=== PATIENT | female | born 1935 | race African-American/Black ===

== ENCOUNTER 2016-07-07 16:45 | Emergency (ER) | payer OTHER ==
--- NOTE | 2016-07-07 17:54 | PDOC ---
Rapid Medical Evaluation Time Seen by Provider: 07/07/16 17:45 Medical Evaluation: Allergies Allergy/AdvReac Type Severity Reaction Status Date / Time No Known Allergies Allergy Verified 06/23/13 15:01
== END 2016-07-07 17:55 | disposition left against medical advice (07) ==
LOC: JER 16:45
DX: Z53.21 Procedure and treatment not carried out due to patient leaving prior to being seen by health care provider (principal)
CPT/HCPCS: 99281-25

== ENCOUNTER 2016-07-07 17:48 | Emergency (ER) | payer OTHER ==
--- NOTE | 2016-07-07 18:06 | PDOC ---
History of Present Illness - General History Source: Patient, Old Records Exam Limitations: No Limitations <Amara Haider - Last Filed: 07/07/16 18:07> - General History Source: Patient, Old Records Exam Limitations: No Limitations - History of Present Illness Initial Comments: 07/07/16 18:28 The patient is a 80 year old female, with a significant past medical history of hypertension, hyperlipidemia, diabetes and thrombocytopenia, who presents to the emergency department with right wrist pain s/p a mechanical trip and fall on the sidewalk earlier this evening. The patient states that she was walking outside when she missed her step and fell. She states that she felt herself falling, tried to reach for the fence next to her but could not grasp it in time. She states that she landed on her outstretched right arm. She states that she did hit her head when she fell but reports that she remembers all events before, during and after her fall, she denies any LOC. The patient states the she is not on any anticoagulants or any antiplatelet medications. The patient denies any blurry vision, double vision, vision changes, headache, neck pain or back pain. The patient denies any other injury or trauma. Allergies: None reported. Past Surgical History: None reported. Social History: Non smoker. Denies alcohol or drug use. <Prerna Mora - Last Filed: 07/07/16 19:03> - General Chief Complaint: Injury Stated Complaint: RT WRIST PAIN Time Seen by Provider: 07/07/16 17:57 Past History - Past Medical History HTN: Yes Hypercholesterolemia: Yes - Psycho/Social/Smoking Cessation Hx Anxiety: No Suicidal Ideation: No Smoking History: Never smoked Have you smoked in the past 12 months: No Hx Alcohol Use: No Substance Use Type: None <Amara Haider - Last Filed: 07/07/16 18:07> <Prerna Mora - Last Filed: 07/07/16 19:03> - Past Medical History Allergies/Adverse Reactions: Allergies Allergy/AdvReac Type Severity Reaction Status Date / Time No Known Allergies Allergy Verified 07/07/16 17:49 Home Medications: Ambulatory Orders Atorvastatin Ca [Lipitor] 10 mg PO DAILY 06/23/13 Cholecalciferol (Vitamin D3) [Vitamin D3 -] 400 unit PO DAILY 07/07/16 Review of Systems - Review of Systems Able to Perform ROS?: Yes Comments:: 07/07/16 18:30 GENERAL/CONSTITUTIONAL: No fever or chills. No weakness. HEAD, EYES, EARS, NOSE AND THROAT: No change in vision. No ear pain or discharge. No sore throat. CARDIOVASCULAR: No chest pain or shortness of breath. RESPIRATORY: No cough, wheezing, or hemoptysis. GASTROINTESTINAL: No nausea, vomiting, diarrhea or constipation. GENITOURINARY: No dysuria, frequency, or change in urination. MUSCULOSKELETAL: +Right wrist pain. No joint or muscle swelling. No neck or back pain. SKIN: No rash. NEUROLOGIC: No headache, vertigo, loss of consciousness, or change in strength/ sensation. ENDOCRINE: No increased thirst. No abnormal weight change. HEMATOLOGIC/LYMPHATIC: No anemia, easy bleeding, or history of blood clots. ALLERGIC/IMMUNOLOGIC: No hives or skin allergy. <Prerna Mora - Last Filed: 07/07/16 19:03> *Physical Exam - Physical Exam Comments: 07/07/16 18:54 GENERAL: Awake, alert, and fully oriented, in no acute distress. HEAD: Refer to Skin section. EYES: PERRLA, EOMI, sclera anicteric, conjunctiva clear. ENT: Auricles normal inspection, hearing grossly normal, nares patent, oropharynx clear without exudates. Moist mucosa. NECK: Normal ROM, supple, no lymphadenopathy, JVD, or masses. LUNGS: Breath sounds equal, clear to auscultation bilaterally. No wheezes, and no crackles. HEART: Regular rate and rhythm, normal S1 and S2, no murmurs, rubs or gallops. ABDOMEN: Soft, nontender, normoactive bowel sounds. No guarding, no rebound. No masses. MUSCULOSKELETAL: No cervical spine tenderness. EXTREMITIES: Right wrist, there is a gross bony deformity which is tender to palpation. Radial pulse is +2 and palpable. Sensations are intact. Motor exam is limited by pain and swelling. No clubbing or cyanosis. No cords or erythema. NEUROLOGICAL: Cranial nerves II through XII intact. Normal speech, normal gait. SKIN: Right frontal region, there is a 3 cm x 4 cm hematoma with an overlying abrasion. There is bruising underneath the right eye. Warm, dry, normal turgor, no rashes noted. <Prerna Mora - Last Filed: 07/07/16 19:03> ED Treatment Course - LABORATORY CBC & Chemistry Diagram: 07/07/16 18:45 07/07/16 18:45 <Prerna Mora - Last Filed: 07/07/16 19:03> Medical Decision Making - Medical Decision Making 07/07/16 18:07 80-year-old female with history of hypertension, diabetes, thrombocytopenia who presents to the emergency department with injury to her right wrist and head following a mechanical fall. The patient does not take anti-coagulants or anti- platelet medications. Differential diagnosis includes but is not limited to: Wrist fracture, hand fracture, traumatic brain injury, concussion, contusion to head. Plan: 1. Labs 2. CT head 3. Plain films of right wrist and hand 4. Pain management 5. Observe and reevaluate <Amara Haider - Last Filed: 07/07/16 18:07> *DC/Admit/Observation/Transfer - Attestations Physician Attestion: 07/07/16 18:09 I, Dr. Amara Haider, attest that the scribes documentation that appears above has been prepared under my direction and personally reviewed by me in its entirety. I confirmed that the note above accurately reflects all work, treatment, procedures, and medical decision-making performed by me. <Amara Haider - Last Filed: 07/07/16 18:07> - Attestations Scribe Attestion: 07/07/16 18:15 Documentation prepared by Prerna Mora, acting as medical director occupational health for Amara Haider MD. <Prerna Mora - Last Filed: 07/07/16 19:03> Diagnosis at time of Disposition: Contusion of head, Wrist fracture, right
[2016-07-07] MEDS ORDERED: OXYCODONE/APAP 5/325MG COMBO TABLET PO ONE (18:11)
[2016-07-07 18:45] VITALS: BP 177/90; PULSE 76; TEMP 97.7; BMI 22.7
[2016-07-07] MEDS ORDERED: OXYCODONE/APAP 5/325MG COMBO TABLET ONE (18:46)
[2016-07-07 19:01] LABS: BASOPHIL 1.7 % (0-2.0); EOSINOPHIL 0.2 % (0-4.5); MCH 25.5 pg (25.7-33.7); MCHC 31.9 g/dl (32.0-36.0); MEAN CELL VOLUME 79.9 fl (80-96); MEAN PLT VOLUME 12.1 fl (7.5-11.1); NEUTROPHILS 83.4 % (42.8-82.8); PLATELET COUNT 114 K/MM3 (134-434); RDW 13.2 % (11.6-15.6); WHITE BLOOD COUNT 9.7 K/mm3 (4.0-10.0)
[2016-07-07 19:21] LABS: ACTIVATED PTT 26.4 SECONDS (24.0-38.9)
[2016-07-07 19:24] LABS: CALCIUM 9.5 mg/dl (8.4-10.2); CREATININE 0.8 mg/dl (0.6-1.3); MAGNESIUM 1.9 mg/dL (1.8-2.4); PHOSPHOROUS 2.9 mg/dl (2.5-4.6)
[2016-07-07 19:25] LABS: INR 1.2 (0.82-1.09); PROTHROMBIN TIME (PATIENT) 13.4 SEC (10.2-13.0)
[2016-07-07] MEDS ORDERED: LIDOCAINE HCL 1%, 10 MG/ML (20ML VIAL) ONE (20:37)
--- NOTE | 2016-07-07 21:03 | PDOC ---
*Physical Exam - Vital Signs Last Vital Signs Temp Pulse Resp BP Pulse Ox 97.7 F 76 20 177/90 96 07/07/16 17:49 07/07/16 17:49 07/07/16 17:49 07/07/16 17:49 07/07/16 17:49 ED Treatment Course - LABORATORY CBC & Chemistry Diagram: 07/07/16 18:45 07/07/16 18:45 - ADDITIONAL ORDERS Additional order review: Laboratory Results 07/07/16 07/07/16 18:45 18:45 INR 1.20 PTT (Actin FS) 26.4 Sodium 136 Potassium 4.0 Chloride 102 Carbon Dioxide 26 Anion Gap 8 BUN 18 Creatinine 0.8 Random Glucose 144 H Calcium 9.5 Phosphorus 2.9 Magnesium 1.9 07/07/16 18:45 RBC 5.34 H MCV 79.9 L MCHC 31.9 L RDW 13.2 MPV 12.1 H Neutrophils % 83.4 H Lymphocytes % 13.0 Monocytes % 1.7 L Eosinophils % 0.2 Basophils % 1.7 - Medications Given in the ED: ED Medications Discontinued Medications Generic Name Dose Route Start Last Admin Trade Name Freq PRN Reason Stop Dose Admin Oxycodone/Acetaminophen 1 combo 07/07/16 18:11 07/07/16 18:49 Percocet 5/325 - PO 07/07/16 18:12 1 combo ONCE ONE Administration *DC/Admit/Observation/Transfer Diagnosis at time of Disposition: Contusion of head Qualifiers: Encounter type: initial encounter Contusion of head detail: scalp Qualified Code(s): S00.03XA - Contusion of scalp, initial encounter Wrist fracture, right Qualifiers: Encounter type: initial encounter Fracture type: closed Qualified Code(s): S62.101A - Fracture of unspecified carpal bone, right wrist, initial encounter for closed fracture - Discharge Dispostion Disposition: HOME Condition at time of disposition: Stable - Patient Instructions Printed Discharge Instructions: How to Use a Sling Additional Instructions: ELEVATION TYLENOL IF PAIN SEE DR. BURGER (CALL IN AM) Procedure Note Procedure: UNDER HEMATOMA BLOCK, TRACTION APPLIED FOR 20 MIN AND REDUCTION ATTEMPTED. SUGAR TONGUE IMMOBILIZATION WILL SEE ORTHO IN AM
== END 2016-07-07 21:28 | disposition home or self-care (01) ==
LOC: FER 17:48
PROC: 0PSMXZZ Reposition Right Carpal, External Approach (ICD-10-PCS; principal; 2016-07-07)
DX: S52.531A Colles' fracture of right radius, initial encounter for closed fracture (principal); S00.03XA Contusion of scalp, initial encounter; W18.39XA Other fall on same level, initial encounter; Y93.89 Activity, other specified; Y92.410 Unspecified street and highway as the place of occurrence of the external cause
CPT/HCPCS: 25635; 36415; 70450-TC; 73090-TC-RT; 73110-TC-RT; 73130-TC-RT; 80048; 83735; 84100; 85025; 85610; 85730; 99282-25

== ENCOUNTER 2016-07-14 14:43 | Day surgery (SDC) | payer OTHER ==
[2016-07-14 15:30] VITALS: BMI 20.8
[2016-07-14] MEDS ORDERED: MIDAZOLAM HCL 2 MG/2 ML SINGLE DOSE VIAL ONE (15:38)
[2016-07-14] MEDS ORDERED: DEXAMETHASONE SOD PHOSPHATE/PF 10 MG/ML SDV ONE (15:38)
[2016-07-14] MEDS ORDERED: ROPIVACAINE HCL 0.5% 30ML VIAL ONE (15:38)
[2016-07-14] MEDS ORDERED: ONDANSETRON 4 MG/2 ML VIAL IVPUSH PRN (16:52)
[2016-07-14] MEDS ORDERED: oxyCODONE HCL 5 MG TABLET PO PRN (16:52)
[2016-07-14] MEDS ORDERED: MEPIVACAINE HCL/PF 15 MG/ML ML ONE (16:55)
[2016-07-14] MEDS ORDERED: LACTATED RINGERS SOLUTION 1,000 ML IV SCH (17:00)
[2016-07-14] MEDS ORDERED: PROPOFOL 20 ML ONE ×3 (17:11→18:01)
[2016-07-14 20:36] VITALS: BP 144/85; PULSE 78; TEMP 98.5
--- NOTE | 2016-07-15 13:15 | OP ---
DATE OF OPERATION: 07/14/2016 PREOPERATIVE DIAGNOSIS: Right comminuted intraarticular displaced distal radius fracture. POSTOPERATIVE DIAGNOSIS: Right comminuted intraarticular displaced distal radius fracture. OPERATIVE PROCEDURE: 1. Open reduction, internal fixation of right comminuted intraarticular displaced distal radius fracture with internal fixation of 3 or more fragments. 2. Right brachioradial sternotomy. SURGEON: Julia Hamilton MD TELEVISION CABLE INSTALLER: LETICIA Durant ANESTHESIA: Regional. COMPLICATIONS: None. ESTIMATED BLOOD LOSS: Minimal. INDICATION FOR PROCEDURE: The patient is a 80-year-old female with the above finding indicated for operative treatment. Risks, benefits, and alternatives were discussed with the patient at length and proper informed consent was obtained. PROCEDURE: After proper identification of patient, correct operative site, patient was brought to the operating room and placed supine on the operating room table. Prominences well padded. Sedation was given by the anesthesiologist. Local regional anesthesia was given. Right upper extremity was prepped and draped in the usual sterile fashion. Well-padded tourniquet was placed as well as a sterile prep. Esmarch bandage to exsanguinate right upper extremity. The tourniquet was inflated to 250 mmHg. A longitudinal incision was made over the flexor carpi radialis tendon. Incision was taken sharply through the skin and with blunt and sharp dissection through the subcutaneous tissues. Flexor carpi radialis tendon along with the contents of the carpal canal was bluntly and gently retracted in an ulnarward direction for the remainder of the procedure. Pronator quadratus was divided longitudinally. This was elevated off the distal radius. Fracture fragments were attempted to be reduced. The pull of the brachioradialis tendon made this not possible. Therefore, a subperiosteal brachial radialis tenotomy was performed. This allowed the fragments to be released and the fracture was able to be reduced. This was then held with an Acumed Acu-Loc 2 distal radius plate with distal locking screws and proximal nonlocking screws. This provided a secure stable fixation and satisfactory position confirmed visually as well as radiographically in multiple planes. Distal radial and ulnar joints and scapholunate intervals were stressed and found to be stable. The wound was irrigated with saline and repaired with 4-0 Vicryl in layers and a 4-0 Monocryl subcuticularly. Steri-Strips, sterile dressings, and a volar wrist splint were placed. Patient was reversed from anesthesia and brought to the recovery room in stable condition. Yobani Galan, the surgical processor, was integral throughout this procedure. The procedure could not have been performed without a skilled operative patent legal assistant. JULIA HAMILTON M.D. JESSICA/[id number]
== END 2016-07-14 20:15 | disposition home or self-care (01) ==
LOC: FASU 14:43
PROVIDERS: ATTEND Orthopaedic Surgery Hand Surgery
PROC: 0LN50ZZ Release Right Lower Arm and Wrist Tendon, Open Approach (ICD-10-PCS; 2016-07-14)
PROC: 0PSH04Z Reposition Right Radius with Internal Fixation Device, Open Approach (ICD-10-PCS; principal; 2016-07-14 17:30)
DX: S52.531A Colles' fracture of right radius, initial encounter for closed fracture (principal); X58.XXXA Exposure to other specified factors, initial encounter; Y93.9 Activity, unspecified; Y92.9 Unspecified place or not applicable
CPT/HCPCS: 73110-TC-RT

== ENCOUNTER 2018-08-21 17:00 | Emergency (ER) | payer OTHER ==
--- NOTE | 2018-08-21 17:07 | PDOC ---
Rapid Medical Evaluation Time Seen by Provider: 08/21/18 17:03 Medical Evaluation: Allergies Allergy/AdvReac Type Severity Reaction Status Date / Time No Known Allergies Allergy Verified 07/13/16 16:00 08/21/18 17:03 I have performed a brief in-person evaluation of this patient. The patient presents with a chief complaint of s/p fall fall. Patient reports s/p trip and fall with pain in left 5th digit and right knee. Denies loc Pertinent physical exam findings: heent: +abrasion to left side of face even and unlabored breathing right knee with redness and abrasion left hand with flexed 5th digit and abrasions to fingers I have ordered the following xray of right knee and left hand The patient will proceed to the ED for further evaluation. 08/21/18 17:09 Discharge Disposition - Diagnosis Fall Qualifiers: Encounter type: initial encounter Qualified Code(s): W19.XXXA - Unspecified fall, initial encounter - Referrals Referrals: Martinez Cash MD [Primary Care Provider] - - Patient Instructions - Post Discharge Activity
[2018-08-21 17:12] VITALS: BP 132/72; PULSE 77; TEMP 97.7; BMI 20.9
--- NOTE | 2018-08-21 19:29 | PDOC ---
*Physical Exam - Vital Signs Last Vital Signs Temp Pulse Resp BP Pulse Ox 97.7 F 77 17 132/72 98 08/21/18 17:04 08/21/18 17:04 08/21/18 17:04 08/21/18 17:04 08/21/18 17:04 Medical Decision Making - Medical Decision Making 08/21/18 19:25 Patient seen by the advanced practice provider under my direct supervision. Ancillary testing reviewed as necessary. I agree with plan as outlined by the advanced practice provider. *DC/Admit/Observation/Transfer Diagnosis at time of Disposition: Finger fracture, left Qualifiers: Encounter type: initial encounter Finger: little finger Fracture type: closed Phalanx: proximal Fracture alignment: displaced Qualified Code(s): S62.617A - Displaced fracture of proximal phalanx of left little finger, initial encounter for closed fracture Metacarpal bone fracture Qualifiers: Encounter type: initial encounter Metacarpal bone: fifth Fracture type: closed Metacarpal location: neck Fracture alignment: nondisplaced Laterality: left Qualified Code(s): S62.367A - Nondisplaced fracture of neck of fifth metacarpal bone, left hand, initial encounter for closed fracture - Discharge Dispostion Disposition: HOME - Prescriptions Prescriptions: Cephalexin Monohydrate [Keflex -] 500 mg PO Q8H #21 capsule - Referrals Referrals: Martinez Cash MD [Primary Care Provider] - Cj Plaza MD [Staff Physician] - Call tomorrow (need to follow up within a week) - Patient Instructions Printed Discharge Instructions: Finger Fracture Additional Instructions: please call orthopedic office tomorrow elevate arm. keep in sling. apply ice to the area for atleast 24 hours . do not remove splint take cephalexin as prescribed. Additional Instructions: * Please call your personal physician to report your Emergency Department visit and to report your progress, if any. * If there is no improvement in symptoms in 2 days call your physician. * Return to the Emergency Department for any worsening symptoms. - Post Discharge Activity Forms/Work/School Notes: Back to Work
[2018-08-21] MEDS ORDERED: LIDOCAINE HCL 2% (20ML MULTI-DOSE VIAL) NR ONE (20:04)
--- NOTE | 2018-08-21 20:06 | PDOC ---
History of Present Illness - General Chief Complaint: Injury Stated Complaint: Injury Time Seen by Provider: 08/21/18 17:03 History Source: Patient - History of Present Illness Initial Comments: 08/21/18 19:51 82year female tripped and fell over to the left side on the street, c/o left hand pain,left knee pain, and left side of lip swelling. denies head injury/ loc. normocephalic. patient did not fell forward, reports that she fell to the left side bracing the fall with her hand. as per patient last tetanus recent in the last few years 08/21/18 21:12 Past History - Past Medical History Allergies/Adverse Reactions: Allergies Allergy/AdvReac Type Severity Reaction Status Date / Time No Known Allergies Allergy Verified 08/21/18 17:04 Home Medications: Ambulatory Orders Atorvastatin Ca [Lipitor] 10 mg PO HS 06/23/13 Cholecalciferol (Vitamin D3) [Vitamin D3] 5,000 unit PO WEEKLY 07/13/16 Cephalexin Monohydrate [Keflex -] 500 mg PO Q8H #21 capsule 08/21/18 Anemia: No Asthma: No Cancer: No Cardiac Disorders: No CVA: No COPD: No CHF: No Dementia: No Diabetes: No GI Disorders: No Disorders: No HTN: No Hypercholesterolemia: Yes Liver Disease: No Seizures: No Thyroid Disease: No - Surgical History Abdominal Surgery: Yes (LAUREEN) Appendectomy: No Cardiac Surgery: No Cholecystectomy: No Lung Surgery: No Neurologic Surgery: No Orthopedic Surgery: No - Suicide/Smoking/Psychosocial Hx Smoking History: Never smoked Have you smoked in the past 12 months: No Information on smoking cessation initiated: No Hx Alcohol Use: No Drug/Substance Use Hx: No Substance Use Type: None Review of Systems - Review of Systems Able to Perform ROS?: Yes Is the patient limited [place] proficient: No Musculoskeletal: Yes: Other (hand pain) *Physical Exam - Vital Signs Last Vital Signs Temp Pulse Resp BP Pulse Ox 97.7 F 77 17 132/72 98 08/21/18 17:04 08/21/18 17:04 08/21/18 17:04 08/21/18 17:04 08/21/18 17:04 - Physical Exam General Appearance: Yes: Appropriately Dressed HEENT: positive: Other (has left upper swelling no mandibular / facial bone tenderness) Respiratory/Chest: positive: Lungs Clear, Normal Breath Sounds Cardiovascular: positive: Regular Rhythm, Regular Rate Gastrointestinal/Abdominal: positive: Normal Bowel Sounds, Soft Musculoskeletal: positive: Normal Inspection. negative: Vertebral Tenderness ( she has no midline tenderness, full rom, no ) Extremity: positive: Other (+ deormity to left 5th digit, tenderness to left 5th metacarpal bone) Integumentary: positive: Normal Color, Dry, Warm Neurologic: positive: Fully Oriented, Alert Procedures - Consent Consent obtained: Verbal - Joint Reduction Left Joint Reduction Site: left: Finger (5th proximal phalynx ) Pre-Procedure NV Exam: normal Conscious Sedation: Yes Finger Block: 5th digit Reduction Attempts: 1 Anesthetic: 1% Lidocaine Amount (mL): 1 Post-Procedure NV Exam: normal Complications: No (finger reduced with gentle countertraction and traction. ) Post Joint Reduction Film: joint reduced Splint: Yes (ulnar volvar splint placed) Immobilized: Yes Progress Note - Progress Note Progress Note: A: finger fracture. has abrasion on finger open fracture? P: xray tylenol. ortho follow up CT head and C-spine due to mechanism of fall. *DC/Admit/Observation/Transfer Diagnosis at time of Disposition: Fall in elderly patient Finger fracture, left Qualifiers: Encounter type: initial encounter Finger: little finger Fracture type: closed Phalanx: proximal Fracture alignment: displaced Qualified Code(s): S62.617A - Displaced fracture of proximal phalanx of left little finger, initial encounter for closed fracture Metacarpal bone fracture Qualifiers: Encounter type: initial encounter Metacarpal bone: fifth Fracture type: closed Metacarpal location: neck Fracture alignment: nondisplaced Laterality: left Qualified Code(s): S62.367A - Nondisplaced fracture of neck of fifth metacarpal bone, left hand, initial encounter for closed fracture - Discharge Dispostion Disposition: HOME - Prescriptions Prescriptions: Cephalexin Monohydrate [Keflex -] 500 mg PO Q8H #21 capsule - Referrals Referrals: Martinez Cash MD [Primary Care Provider] - Cj Plaza MD [Staff Physician] - Call tomorrow (need to follow up within a week) - Patient Instructions Printed Discharge Instructions: Finger Fracture Additional Instructions: please call orthopedic office tomorrow elevate arm. keep in sling. apply ice to the area for atleast 24 hours . do not remove splint take cephalexin as prescribed. Additional Instructions: * Please call your personal physician to report your Emergency Department visit and to report your progress, if any. * If there is no improvement in symptoms in 2 days call your physician. * Return to the Emergency Department for any worsening symptoms. - Post Discharge Activity Forms/Work/School Notes: Back to Work
== END 2018-08-21 22:05 | disposition home or self-care (01) ==
LOC: JER 17:00
PROC: 0PSVXZZ Reposition Left Finger Phalanx, External Approach (ICD-10-PCS; principal; 2018-08-21)
PROC: 2W3DX1Z Immobilization of Left Lower Arm using Splint (ICD-10-PCS; 2018-08-21)
DX: S62.367A Nondisplaced fracture of neck of fifth metacarpal bone, left hand, initial encounter for closed fracture (principal); S62.617A Displaced fracture of proximal phalanx of left little finger, initial encounter for closed fracture; W18.39XA Other fall on same level, initial encounter; Y93.89 Activity, other specified; Y92.414 Local residential or business street as the place of occurrence of the external cause; Y99.8 Other external cause status
CPT/HCPCS: 26725; 29125; 70450-TC; 72125-TC; 73130-TC-LT-FY; 73140-TC-LT-FY; 73562-TC-RT-FY; 99282-25

== ENCOUNTER 2019-05-29 13:09 | Inpatient (IN) | payer OTHER ==
--- NOTE | 2019-05-29 13:31 | PDOC ---
Rapid Medical Evaluation Chief Complaint: Injury Time Seen by Provider: 05/29/19 13:23 Medical Evaluation: Allergies Allergy/AdvReac Type Severity Reaction Status Date / Time No Known Allergies Allergy Verified 05/29/19 13:22 05/29/19 13:28 Pt presents to the ER today after her brother visited her yesterday and thought she was acting off. She states that her hands hurt and that she feels tired. Exam: Pt seems confused. NAD Orders: EKG, labs, urine Pt to proceed to the ER for further evaluation Discharge Disposition - Diagnosis Confusion - Referrals - Patient Instructions - Post Discharge Activity
[2019-05-29 14:53] LABS: BASO % 0.5 % (0-2.0); EOS % 0.1 % (0-4.5); HEMATOCRIT 47.8 % (32.4-45.2); HEMOGLOBIN 15.6 GM/dL (10.7-15.3); LYMPH % 28.3 % (8-40); MCH 26.3 pg (25.7-33.7); MCHC 32.7 g/dl (32.0-36.0); MEAN CELL VOLUME 80.5 fl (80-96); MONO % 9.7 % (3.8-10.2); NEUT % 61.4 % (42.8-82.8); PLATELET COUNT 115 K/MM3 (134-434); RBC 5.93 M/mm3 (3.60-5.2); RDW 13.9 % (11.6-15.6); WHITE BLOOD COUNT 5.4 K/mm3 (4.0-10.0)
[2019-05-29 15:06] LABS: INR 1.05 (0.83-1.09); PROTHROMBIN TIME (PATIENT) 12.4 SEC (9.7-13.0)
--- NOTE | 2019-05-29 15:22 | PDOC ---
History of Present Illness - General Chief Complaint: Injury Stated Complaint: FALL/ LEG PAIN Time Seen by Provider: 05/29/19 13:23 - History of Present Illness Initial Comments: 05/29/19 15:17 83 year old female with a significant past medical history of osteoporosis ( dexa here from 12/08/18), hypertension, hyperlipidemia and thrombocytopenia and frequent fall present to ED because of a fall. Pt explained that she tripped and fell and landed on her right forearm a couple of days ago without recollection of any precipitating symptoms such as headache, blurry vision, palpitation. Although patient is alert and oriented, she is a poor historian and brother at bedside believes that she is altered and provided the following information. According to the brother, he found pt at home without food nor water, with patient and house unkempt. He admits that her cognitive function seems worse than last he saw her and believe that she is unable to care for herself. He [place] and patient lives alone. He explains that she has not been compliant with her medications either. Multiple siblings passed over the years from Alzheimer's Dementia and believe that the same thing might be happening to his sister. Of note, pt endorsed being urine incontinent lately despite her barely drinking. She denies any pain, F/C/N/V, SOB, FND, or bowel changes. PSH: right wrist fracture fixation Social Hx: pt denies any smoking, EtOH, or illicit drug use. Lives alone and care for self Family Hx: siblings with hx of dementia PCP: Shailesh lAaniz PE: Gen: No apparent distressed, malnourished appearing MSK: no tenderness or pain on right forearm, ROM intact HEENT: PERRLA, dry mucous membrane CHEST: vesicular breath sounds b/l, no wheezing, rales or ronchi Heart: RRR no MRG Abdomen: +BS, NTND extremities: no edema Neuro : AAOx3, CN 2-12 intact, motor strength 5/5 and sensation intact throughout 05/29/19 15:27 Assessment: based on HPI and PE, DDX include: delirium (infectious, metabolic, vascular) vs Dementia leading to failure to thrive and fall 05/29/19 15:44 Plan : CBC, CMP, Mag, phos, UA, urine culture, CXR, Head CT w/o contrast to assess for e/p reversible or bleed/stroke, B12 and folate, TSH 05/29/19 15:45 CBC,CMP WBC 5.4 K/mm3 (4.0-10.0) 05/29/19 14:20 RBC 5.93 M/mm3 (3.60-5.2) H 05/29/19 14:20 Hgb 15.6 GM/dL (10.7-15.3) H 05/29/19 14:20 Hct 47.8 % (32.4-45.2) H D 05/29/19 14:20 MCV 80.5 fl (80-96) 05/29/19 14:20 MCH 26.3 pg (25.7-33.7) 05/29/19 14:20 MCHC 32.7 g/dl (32.0-36.0) 05/29/19 14:20 RDW 13.9 % (11.6-15.6) 05/29/19 14:20 Plt Count 115 K/MM3 (134-434) L 05/29/19 14:20 MPV 11.0 fl (7.5-11.1) 05/29/19 14:20 Absolute Neuts (auto) 3.3 K/mm3 (1.5-8.0) 05/29/19 14:20 Neutrophils % 61.4 % (42.8-82.8) D 05/29/19 14:20 Lymphocytes % 28.3 % (8-40) D 05/29/19 14:20 Monocytes % 9.7 % (3.8-10.2) 05/29/19 14:20 Eosinophils % 0.1 % (0-4.5) D 05/29/19 14:20 Basophils % 0.5 % (0-2.0) 05/29/19 14:20 Nucleated RBC % 0 % (0-0) 05/29/19 14:20 Sodium 136 mmol/L (136-145) 05/29/19 14:20 Potassium 3.7 mmol/L (3.5-5.1) 05/29/19 14:20 Chloride 97 mmol/L (98-107) L 05/29/19 14:20 Carbon Dioxide 28 mmol/L (21-32) 05/29/19 14:20 Anion Gap 12 MMOL/L (8-16) 05/29/19 14:20 BUN 50.9 mg/dL (7-18) H 05/29/19 14:20 Creatinine 1.5 mg/dL (0.55-1.3) H 05/29/19 14:20 Est GFR (CKD-EPI)AfAm 37.48 05/29/19 14:20 Est GFR (CKD-EPI)NonAf 32.34 05/29/19 14:20 Random Glucose 113 mg/dL (74-106) H 05/29/19 14:20 Calcium 9.4 mg/dL (8.5-10.1) 05/29/19 14:20 Total Bilirubin 1.1 mg/dL (0.2-1) H 05/29/19 14:20 AST 58 U/L (15-37) H 05/29/19 14:20 ALT 33 U/L (13-61) 05/29/19 14:20 Alkaline Phosphatase 76 U/L (45-117) 05/29/19 14:20 Total Protein 9.1 g/dl (6.4-8.2) H 05/29/19 14:20 Albumin 4.4 g/dl (3.4-5.0) 05/29/19 14:20 CBC with mild erythrocytosis and thrombocytopenia (chronic). No leukocytosis CMP with e/o DYLAN 50.9/1.5, elevated tbili 1.1 and AST 58 UA positive for UTI at WBC of 32 and bacteria >220 pt started on 1L NS @100, 1gm of ceftriaxone hanging 05/29/19 15:[address] w/o acute pathology. positive for lateral ventricular dilation from central atrophy CXR without consolidation or congestion 05/29/19 16:14 mag, phos, B12, folate, TSH pending to r/o other reversible causes 05/29/19 16:59 will admit to medicine for UTI and failure to thrive will send microblog for admission 05/29/19 18:13 awaiting sign out with [employer] Kendy Cash took signout and will follow pt on admission 05/29/19 18:35 Past History - Past Medical History Allergies/Adverse Reactions: Allergies Allergy/AdvReac Type Severity Reaction Status Date / Time No Known Allergies Allergy Verified 05/29/19 13:22 Home Medications: Ambulatory Orders Atorvastatin Ca [Lipitor] 10 mg PO HS 06/23/13 Anemia: No Asthma: No Cancer: No Cardiac Disorders: No CVA: No COPD: No CHF: No Dementia: No Diabetes: No GI Disorders: No Disorders: No HTN: No Hypercholesterolemia: Yes Liver Disease: No Seizures: No Thyroid Disease: No - Surgical History Abdominal Surgery: Yes (LAUREEN) Appendectomy: No Cardiac Surgery: No Cholecystectomy: No Lung Surgery: No Neurologic Surgery: No Orthopedic Surgery: No - Psycho Social/Smoking Cessation Hx Smoking History: Never smoked Have you smoked in the past 12 months: No Information on smoking cessation initiated: No Hx Alcohol Use: No Drug/Substance Use Hx: No Substance Use Type: None *Physical Exam - Vital Signs Last Vital Signs Temp Pulse Resp BP Pulse Ox 97.7 F 73 20 107/68 97 05/29/19 13:23 05/29/19 13:23 05/29/19 13:23 05/29/19 13:23 05/29/19 13:23 ED Treatment Course - LABORATORY CBC & Chemistry Diagram: 05/29/19 14:20 05/29/19 14:20 - ADDITIONAL ORDERS Additional order review: Laboratory Results 05/29/19 05/29/19 14:20 14:20 WBC 5.4 RBC 5.93 H Hgb 15.6 H Hct 47.8 H D MCV 80.5 MCH 26.3 MCHC 32.7 RDW 13.9 Plt Count 115 L MPV 11.0 Absolute Neuts (auto) 3.3 Neutrophils % 61.4 D Lymphocytes % 28.3 D Monocytes % 9.7 Eosinophils % 0.1 D Basophils % 0.5 Nucleated RBC % 0 PT with INR 12.40 INR 1.05 05/29/19 14:20 RBC 5.93 H MCV 80.5 MCHC 32.7 RDW 13.9 MPV 11.0 Neutrophils % 61.4 D Lymphocytes % 28.3 D Monocytes % 9.7 Eosinophils % 0.1 D Basophils % 0.5 Discharge - Discharge Information Problems reviewed: Yes Clinical Impression/Diagnosis: Confusion, Fall in elderly patient Condition: Guarded - Admission Yes - Follow up/Referral - Patient Discharge Instructions - Post Discharge Activity
[2019-05-29 15:30] LABS: ALBUMIN 4.4 g/dl (3.4-5.0); BILIRUBIN,TOTAL 1.1 mg/dL (0.2-1); BLOOD UREA NITROGEN 50.9 mg/dL (7-18); CALCIUM 9.4 mg/dL (8.5-10.1); CREATININE 1.5 mg/dL (0.55-1.3); POTASSIUM 3.7 mmol/L (3.5-5.1); TOT PROT 9.1 g/dl (6.4-8.2)
[2019-05-29 15:37] LABS: EPI CELLS 4.5 /HPF (0-5/HPF); HYALINE CASTS 26 /lpf (0-8); URINE APPEARANCE CLOUDY; URINE BACTERIA 226.1 /hpf (NEGATIVE); URINE BILIRUBIN NEGATIVE (NEGATIVE); URINE COLOR YELLOW; URINE GLUCOSE (UA) NEGATIVE (NEGATIVE); URINE KETONE 1+ (NEGATIVE); URINE LEUK ESTERASE 3+ (NEGATIVE); URINE NITRITE NEGATIVE (NEGATIVE); URINE PROTEIN TRACE (NEGATIVE); URINE WBC 32 /hpf (0-5)
[2019-05-29] MEDS ORDERED: SODIUM CHLORIDE 1,000 ML IV SCH (15:45)
[2019-05-29] MEDS ORDERED: CEFTRIAXONE 1 GM/50 ML BAG ONE (15:59)
[2019-05-29] MEDS ORDERED: CEFTRIAXONE 1,000 MG in DEXTROSE 5%-WATER - 50 ML IVPB ONE (16:03)
[2019-05-29] MEDS ORDERED: CEFTRIAXONE IVPB ONE (16:04)
[2019-05-29] MEDS ORDERED: DEXTROSE 5% IVPB ONE (16:04)
[2019-05-29] MEDS ORDERED: NORMAL SALINE IVPB ONE (16:04)
--- NOTE | 2019-05-29 16:06 | PDOC ---
Documentation entered by Reji Alexander SCRIBE, acting as scribe for Nilay Harkins MD. Nilay Harkins MD: This documentation has been prepared by the Benjamin hurley Daniel, SCRIBE, under my direction and personally reviewed by me in its entirety. I confirm that the documentation accurately reflects all work, treatment, procedures, and medical decision making performed by me. Attending Attestation - Resident Resident Name: Lizzie Lucas - ED Attending Attestation I have performed the following: I have examined & evaluated the patient, The case was reviewed & discussed with the resident, I agree w/resident's findings & plan, Exceptions are as noted - HPI HPI: 05/29/19 14:45 The patient is an 83 year old female with a past medical history of HLD and frequent falls here today for evaluation of a fall. The patient states that she was walking in the street and fell. Patient denies any head strike or loss of consciousness and states that she fell on her right forearm. Patient denies headache, lightheadedness. Denies fever, chills. Denies chest pain, shortness of breath. Denies nausea, vomiting, diarrhea, abdominal pain. Allergies: NKA PCP: Martinez Cash - Physicial Exam PE: 05/29/19 18:17 Vitals: Triage Vital signs reviewed General Appearance: No acute distress, well nourished well developed, Head: Atraumatic, Cardiac: Regular rate and rhythym, no murmurs, no rubs, no gallops, Lungs: Clear to auscultation bilateral, good air movement bilaterally, Abdomen: Soft, non distended, normal bowel sounds, non tender to palpation Extremities: Full range of motion to all extremities, no cyanosis, clubbing, or edema Skin: Warm and dry, no rashes or lesions, no rash, no petechiae Psych: Normal mood, normal affect - Medical Decision Making 05/29/19 19:00 83 years old with dementia versus delirium Unable to care for self at home brought in by family member found house with no bed and barely any food Patient is confused her analysis and work-up here in the emergency department has demonstrated a urinary tract infection and acute renal injury Patient to be admitted to hospital for hydration antibiotics may require placement care management consultation
[2019-05-29 17:16] LABS: URINE RBC 6.5 /hpf (0-4)
[2019-05-29] MEDS ORDERED: BENZOCAINE/MENTH/CETYLPYRD CL 1 EACH LOZENGE MM PRN (17:35)
[2019-05-29 18:09] LABS: MAGNESIUM 2.8 mg/dL (1.8-2.4); PHOSPHOROUS 4.2 mg/dL (2.5-4.9)
[2019-05-29] MEDS ORDERED: SODIUM CHLORIDE 0.9% 500 ML INFUS.BAG IV ONE (19:02)
[2019-05-29] MEDS: SODIUM CHLORIDE 1,000 ML IV SCH ×2 (19:22→21:53)
[2019-05-29] MEDS ORDERED: ATORVASTATIN CA 10 MG TABLET (FP) PO SCH (22:00)
[2019-05-30] MEDS: SODIUM CHLORIDE 1,000 ML IV SCH (07:01)
[2019-05-30 09:41] LABS: BASO % 0.5 % (0-2.0); EOS % 0.7 % (0-4.5); HEMATOCRIT 39.9 % (32.4-45.2); LYMPH % 35.9 % (8-40); MCH 26.2 pg (25.7-33.7); MCHC 32.7 g/dl (32.0-36.0); MONO % 7.9 % (3.8-10.2); PLATELET COUNT 106 K/MM3 (134-434); RBC 4.98 M/mm3 (3.60-5.2); RDW 13.9 % (11.6-15.6); WHITE BLOOD COUNT 4.8 K/mm3 (4.0-10.0)
[2019-05-30 10:13] LABS: ALBUMIN 3.3 g/dl (3.4-5.0); BILIRUBIN,TOTAL 1.2 mg/dL (0.2-1); BLOOD UREA NITROGEN 25.9 mg/dL (7-18); CALCIUM 8.4 mg/dL (8.5-10.1); CREATININE 0.7 mg/dL (0.55-1.3); POTASSIUM 3.3 mmol/L (3.5-5.1); TOT PROT 7.1 g/dl (6.4-8.2)
--- NOTE | 2019-05-30 10:27 | HP ---
DATE OF ADMISSION: 05/29/2019 HISTORY OF PRESENT ILLNESS: This is an 83-year-old female known to have osteoporosis, hypertension and hyperlipidemia, history of frequent falls, came to the emergency room because of a fall. In the ER, workup included CAT scan and chest x-ray; everything was negative for fracture. No evidence of any rectal hemorrhoids. Diagnosed to have a UTI. I think the patient fell because of the UTI, and she was admitted with the diagnosis of UTI, on IV hydration and on IV antibiotics. This morning she is feeling okay. No new complaints. PHYSICAL EXAMINATION: Vital Signs: Blood pressure 130/60, pulse 72, respirations 20, temperature 98.4 to 99.2. HEENT: Unremarkable. Neck: Supple. No JVD. Lungs: Clear. Heart: S1 and S2 normal. No S3 or S4. Abdomen: Soft. Extremities: Legs with no edema. Neurological: Examination grossly normal. LABORATORY REPORTS: WBC 5.4, hemoglobin 15.6. Chemistry: Electrolytes are normal, BUN 15.9, creatinine 1.5. Thyroid functions are normal. IMPRESSION: 1. Urinary tract infection. 2. Hypertension. PLAN: Continue antibiotics. We will do physical therapy. OLGA PAYTON M.D. [id number]
--- NOTE | 2019-05-30 10:43 | EKG ---
Test Reason : Blood Pressure : / mmHG Vent. Rate : 064 BPM Atrial Rate : 064 BPM P-R Int : 150 ms QRS Dur : 090 ms QT Int : 414 ms P-R-T Axes : 046 -58 041 degrees QTc Int : 427 ms NORMAL SINUS RHYTHM LEFT ANTERIOR FASCICULAR BLOCK MINIMAL VOLTAGE CRITERIA FOR LVH, MAY BE NORMAL VARIANT ABNORMAL ECG NO PREVIOUS ECGS AVAILABLE Confirmed by Yobani Joe MD ([id number]) on 05/30/2019 10:43:37 AM Referred By: Confirmed By:Yobani Joe MD
[2019-05-30] MEDS ORDERED: cefTRIAXone SODIUM 1 GM VIAL ONE (11:22)
[2019-05-30] MEDS ORDERED: DEXTROSE 5%-WATER - 50 ML IVPB ONE (11:22)
[2019-05-30] MEDS: CEFTRIAXONE 1 GM in DEXTROSE 5%-WATER - 50 ML IVPB SCH (11:37)
[2019-05-30 15:44] VITALS: BMI 18.9
[2019-05-30] MEDS ORDERED: ATORVASTATIN CA 10 MG TABLET (FP) PO SCH (22:00)
[2019-05-31] MEDS: SODIUM CHLORIDE 1,000 ML IV SCH (00:10)
[2019-05-31] MEDS ORDERED: POTASSIUM CHLORIDE TABS 20 MEQ TABLET.ER (FP) PO ONE (09:22)
[2019-05-31] MEDS ORDERED: CEFACLOR 250 MG CAPSULE PO SCH (10:00)
[2019-05-31] MEDS ORDERED: DEXTROSE 5%-WATER - 50 ML IVPB ONE (11:29)
[2019-05-31] MEDS ORDERED: cefTRIAXone SODIUM 1 GM VIAL ONE (11:29)
[2019-05-31] MEDS: CEFTRIAXONE 1 GM in DEXTROSE 5%-WATER - 50 ML IVPB SCH (11:51)
[2019-05-31 15:01] VITALS: BP 146/78; PULSE 64; TEMP 98.8
== END 2019-05-31 14:48 | disposition home or self-care (01) | DRG 690 ==
LOC: JER 13:09 → JERBED 16:49 → J5S 20:33
PROVIDERS: ADMIT Internal Medicine; ATTEND Internal Medicine
DX: N39.0 Urinary tract infection, site not specified (principal); E46 Unspecified protein-calorie malnutrition; Z68.1 Body mass index [BMI] 19.9 or less, adult; N17.9 Acute kidney failure, unspecified; D69.6 Thrombocytopenia, unspecified; R62.7 Adult failure to thrive; I10 Essential (primary) hypertension; E78.5 Hyperlipidemia, unspecified
CPT/HCPCS: 36415; 70450-TC; 71045-TC-FY; 80053; 81003; 82607; 82746; 83735; 84100; 84443; 85025; 85610; 87086; 93005; 93010; 97116-GP; 97162-GP; 99285-25; J7030

== ENCOUNTER 2020-02-23 11:31 | Emergency (ER) | payer OTHER ==
[2020-02-23 11:48] VITALS: BP 128/68; PULSE 73; TEMP 97.2; BMI 25.9
== END 2020-02-23 12:08 | disposition home or self-care (01) ==
LOC: JER 11:31 → JERFT 11:31
DX: B35.1 Tinea unguium (principal)
CPT/HCPCS: 99283-25

== ENCOUNTER 2020-09-21 12:32 | Emergency (ER) | payer OTHER ==
[2020-09-21 12:38] VITALS: BP 152/82; PULSE 60; TEMP 99; BMI 19.3
== END 2020-09-21 14:13 | disposition home or self-care (01) ==
LOC: JERFT 12:32
DX: S63.501A Unspecified sprain of right wrist, initial encounter (principal)
CPT/HCPCS: 73090-TC-RT-FY; 73110-TC-RT-FY; 73130-TC-RT-FY; 99284-25

== ENCOUNTER 2020-09-29 10:34 | Emergency (ER) | payer OTHER ==
[2020-09-29 10:45] VITALS: BP 140/83; PULSE 68; TEMP 98.2; BMI 20.1
[2020-09-29] MEDS ORDERED: NAPROXEN 500 MG TABLET PO ONE (11:30)
[2020-09-29] MEDS ORDERED: NAPROXEN 500 MG TABLET ONE (11:32)
== END 2020-09-29 11:35 | disposition home or self-care (01) ==
LOC: JERFT 10:34
DX: M25.531 Pain in right wrist (principal)
CPT/HCPCS: 99283-25

== ENCOUNTER 2020-12-13 09:54 | Emergency (ER) | payer OTHER ==
[2020-12-13 10:06] VITALS: BP 146/75; PULSE 63; TEMP 98; BMI 17.8
== END 2020-12-13 10:46 | disposition left against medical advice (07) ==
LOC: JERFT 09:54
DX: M25.531 Pain in right wrist (principal)
CPT/HCPCS: 99281-25

== ENCOUNTER 2020-12-20 16:18 | Emergency (ER) | payer OTHER ==
[2020-12-20 17:09] VITALS: BP 121/73; PULSE 66; TEMP 97.4; BMI 20.1
== END 2020-12-20 18:13 | disposition home or self-care (01) ==
LOC: JER 16:18
DX: M25.531 Pain in right wrist (principal); W10.8XXA Fall (on) (from) other stairs and steps, initial encounter; Y93.01 Activity, walking, marching and hiking
CPT/HCPCS: 73110-TC-RT-FY; 73130-TC-RT-FY; 99283-25

== ENCOUNTER 2021-05-28 18:53 | Emergency (ER) | payer OTHER ==
[2021-05-28 19:13] VITALS: TEMP 98.1; BMI 18.3
[2021-05-29 00:20] VITALS: BP 151/86; PULSE 70
== END 2021-05-29 00:33 | disposition home or self-care (01) ==
LOC: JER 18:53
DX: R68.89 Other general symptoms and signs (principal)
CPT/HCPCS: 99282-25

== ENCOUNTER 2021-10-16 23:44 | Inpatient (IN) | payer OTHER ==
[2021-10-16 23:59] VITALS: BMI 18.8
[2021-10-17 03:41] LABS: CALCIUM 9.2 mg/dL (8.5-10.1)
[2021-10-17 03:42] LABS: ALBUMIN 3.7 g/dl (3.4-5.0); BLOOD UREA NITROGEN 17.8 mg/dL (7-18)
[2021-10-17 03:44] LABS: CREATININE 0.7 mg/dL (0.55-1.3)
[2021-10-17 03:46] LABS: BILIRUBIN,TOTAL 0.7 mg/dL (0.2-1); TOT PROT 7.8 g/dl (6.4-8.2)
[2021-10-17 04:44] LABS: BASO % 0.8 % (0-2.0); EOS % 3.7 % (0-4.5); HEMATOCRIT 39.7 % (32.4-45.2); HEMOGLOBIN 12.9 GM/dL (10.7-15.3); LYMPH % 27.6 % (8-40); MCH 26.3 pg (25.7-33.7); MCHC 32.6 g/dl (32.0-36.0); MEAN CELL VOLUME 80.6 fl (80-96); MEAN PLT VOLUME 9.9 fl (7.5-11.1); MONO % 8.9 % (3.8-10.2); PLATELET COUNT 132 10^3/uL (134-434); RBC 4.92 M/mm3 (3.60-5.2); RDW 14.3 % (11.6-15.6); WHITE BLOOD COUNT 8.2 K/mm3 (4.0-10.0)
[2021-10-17 08:14] LABS: EPI CELLS 27 /uL (0-25.1); HYALINE CASTS 1 /uL (0-3.1); URINE APPEARANCE TURBID; URINE BACTERIA 93 /uL (0-1359); URINE BILIRUBIN NEGATIVE (NEGATIVE); URINE COLOR YELLOW; URINE GLUCOSE (UA) NEGATIVE (NEGATIVE); URINE KETONE NEGATIVE (NEGATIVE); URINE LEUK ESTERASE 2+ (NEGATIVE); URINE NITRITE NEGATIVE (NEGATIVE); URINE PROTEIN NEGATIVE (NEGATIVE); URINE RBC 71 /uL (0-23.9); URINE WBC 67 /uL (0-25.8)
[2021-10-17] MEDS ORDERED: CEFTRIAXONE 1 GM in DEXTROSE 5%-WATER - 50 ML IVPB ONE (08:26)
[2021-10-17] MEDS ORDERED: CEFTRIAXONE 1 GM/50 ML BAG ONE (10:00)
[2021-10-17] MEDS ORDERED: HALOPERIDOL LACTATE 5 MG/ML IM ONE (11:13)
[2021-10-17] MEDS ORDERED: HALOPERIDOL LACTATE 5 MG/ML ONE (11:18)
[2021-10-17] MEDS ORDERED: ACETAMINOPHEN 325 MG TABLET (FP) PO PRN (11:48)
[2021-10-17] MEDS ORDERED: HALOPERIDOL LACTATE 5 MG/ML IM PRN (16:00)
[2021-10-17] MEDS: INSULIN SLIDING SCALE (NOVOLOG) 1 VIAL SQ SCH (17:09)
[2021-10-17] MEDS: OLANZapine 5 MG TABLET PO SCH (21:25)
[2021-10-17] MEDS: HEPARIN NA (PORCINE) 5,000 UNITS/ML 1ML VIAL SQ SCH (21:25)
[2021-10-17] MEDS ORDERED: MELATONIN 5 MG TABLETS PO ONE (22:40)
[2021-10-18] MEDS: INSULIN SLIDING SCALE (NOVOLOG) 1 VIAL SQ SCH ×3 (06:25→16:28)
[2021-10-18 09:49] LABS: BASO % 0.5 % (0-2.0); HEMATOCRIT 41.8 % (32.4-45.2); HEMOGLOBIN 13.7 GM/dL (10.7-15.3); LYMPH % 15.3 % (8-40); MCH 26.4 pg (25.7-33.7); MCHC 32.8 g/dl (32.0-36.0); MEAN CELL VOLUME 80.4 fl (80-96); MEAN PLT VOLUME 10.5 fl (7.5-11.1); MONO % 7.1 % (3.8-10.2); NEUT % 75.1 % (42.8-82.8); PLATELET COUNT 143 10^3/uL (134-434); RDW 14.6 % (11.6-15.6); WHITE BLOOD COUNT 7.2 K/mm3 (4.0-10.0)
[2021-10-18] MEDS ORDERED: DEXTROSE 5%-WATER - 50 ML IVPB ONE (09:58)
[2021-10-18] MEDS ORDERED: cefTRIAXone SODIUM 1 GM VIAL ONE (09:58)
[2021-10-18] MEDS: HEPARIN NA (PORCINE) 5,000 UNITS/ML 1ML VIAL SQ SCH ×2 (10:00→21:43)
[2021-10-18] MEDS: CEFTRIAXONE 1 GM in DEXTROSE 5%-WATER - 50 ML IVPB SCH (10:00)
[2021-10-18 10:16] LABS: BLOOD UREA NITROGEN 10.5 mg/dL (7-18); CALCIUM 9.7 mg/dL (8.5-10.1)
[2021-10-18 10:20] LABS: CREATININE 0.6 mg/dL (0.55-1.3)
[2021-10-18 10:21] LABS: BILIRUBIN,TOTAL 1.1 mg/dL (0.2-1)
[2021-10-18] MEDS ORDERED: LORazepam 2 MG/ML SDV VIAL IVPB PRN (11:26)
[2021-10-18] MEDS: OLANZapine 5 MG TABLET PO SCH (21:43)
[2021-10-19] MEDS: INSULIN SLIDING SCALE (NOVOLOG) 1 VIAL SQ SCH ×2 (06:17→17:07)
[2021-10-19] MEDS ORDERED: cefTRIAXone SODIUM 1 GM VIAL ONE (11:17)
[2021-10-19] MEDS: CEFTRIAXONE 1 GM in DEXTROSE 5%-WATER - 50 ML IVPB SCH (11:22)
[2021-10-19] MEDS: HEPARIN NA (PORCINE) 5,000 UNITS/ML 1ML VIAL SQ SCH ×2 (11:23→21:51)
[2021-10-19] MEDS: OLANZapine 5 MG TABLET PO SCH (21:51)
[2021-10-20] MEDS: INSULIN SLIDING SCALE (NOVOLOG) 1 VIAL SQ SCH ×2 (06:23→17:33)
[2021-10-20 09:19] LABS: BASO % 0.7 % (0-2.0); EOS % 3.6 % (0-4.5); HEMATOCRIT 41.7 % (32.4-45.2); HEMOGLOBIN 13.7 GM/dL (10.7-15.3); LYMPH % 15.8 % (8-40); MCH 26.6 pg (25.7-33.7); MCHC 32.9 g/dl (32.0-36.0); MEAN CELL VOLUME 80.7 fl (80-96); MEAN PLT VOLUME 10.2 fl (7.5-11.1); MONO % 5.2 % (3.8-10.2); NEUT % 74.7 % (42.8-82.8); PLATELET COUNT 139 10^3/uL (134-434); RBC 5.16 M/mm3 (3.60-5.2); RDW 14.7 % (11.6-15.6); WHITE BLOOD COUNT 7.3 K/mm3 (4.0-10.0)
[2021-10-20 09:40] LABS: BLOOD UREA NITROGEN 28.5 mg/dL (7-18); CALCIUM 9.6 mg/dL (8.5-10.1)
[2021-10-20 09:44] LABS: CREATININE 0.7 mg/dL (0.55-1.3)
[2021-10-20] MEDS ORDERED: cefTRIAXone SODIUM 1 GM VIAL ONE (10:46)
[2021-10-20] MEDS ORDERED: DEXTROSE 5%-WATER - 50 ML IVPB ONE (10:47)
[2021-10-20] MEDS: CEFTRIAXONE 1 GM in DEXTROSE 5%-WATER - 50 ML IVPB SCH (11:06)
[2021-10-20] MEDS: HEPARIN NA (PORCINE) 5,000 UNITS/ML 1ML VIAL SQ SCH ×2 (11:07→21:28)
[2021-10-20] MEDS: OLANZapine 5 MG TABLET PO SCH (21:28)
[2021-10-21] MEDS: INSULIN SLIDING SCALE (NOVOLOG) 1 VIAL SQ SCH ×2 (06:47→17:00)
[2021-10-21 08:36] LABS: BASO % 0.6 % (0-2.0); EOS % 1.3 % (0-4.5); HEMATOCRIT 42.9 % (32.4-45.2); LYMPH % 12.5 % (8-40); MCHC 32.6 g/dl (32.0-36.0); MEAN CELL VOLUME 79.7 fl (80-96); MEAN PLT VOLUME 9.4 fl (7.5-11.1); MONO % 6.4 % (3.8-10.2); NEUT % 79.2 % (42.8-82.8); PLATELET COUNT 143 10^3/uL (134-434); RBC 5.38 M/mm3 (3.60-5.2); RDW 14.6 % (11.6-15.6); WHITE BLOOD COUNT 8.6 K/mm3 (4.0-10.0)
[2021-10-21 09:00] LABS: CALCIUM 9.7 mg/dL (8.5-10.1)
[2021-10-21 09:01] LABS: BLOOD UREA NITROGEN 21.9 mg/dL (7-18)
[2021-10-21 09:04] LABS: CREATININE 0.6 mg/dL (0.55-1.3)
[2021-10-21] MEDS ORDERED: DEXTROSE 5%-WATER - 50 ML IVPB ONE (09:21)
[2021-10-21] MEDS ORDERED: cefTRIAXone SODIUM 1 GM VIAL ONE (09:21)
[2021-10-21] MEDS: CEFTRIAXONE 1 GM in DEXTROSE 5%-WATER - 50 ML IVPB SCH (10:31)
[2021-10-21] MEDS ORDERED: POTASSIUM CHLORIDE TABS 20 MEQ TABLET.ER (FP) PO ONE (10:31)
[2021-10-21] MEDS: HEPARIN NA (PORCINE) 5,000 UNITS/ML 1ML VIAL SQ SCH ×2 (10:32→21:55)
[2021-10-21] MEDS: OLANZapine 5 MG TABLET PO SCH ×2 (21:55→22:39)
[2021-10-22] MEDS: INSULIN SLIDING SCALE (NOVOLOG) 1 VIAL SQ SCH ×2 (06:28→16:29)
[2021-10-22 07:28] LABS: CALCIUM 9.8 mg/dL (8.5-10.1)
[2021-10-22 07:32] LABS: CREATININE 0.6 mg/dL (0.55-1.3)
[2021-10-22] MEDS ORDERED: DEXTROSE 5%-WATER - 50 ML IVPB ONE (10:03)
[2021-10-22] MEDS ORDERED: cefTRIAXone SODIUM 1 GM VIAL ONE (10:03)
[2021-10-22] MEDS: CEFTRIAXONE 1 GM in DEXTROSE 5%-WATER - 50 ML IVPB SCH (10:14)
[2021-10-22] MEDS: HEPARIN NA (PORCINE) 5,000 UNITS/ML 1ML VIAL SQ SCH ×2 (10:21→22:30)
[2021-10-22] MEDS: QUEtiapine FUMARATE 25 MG TABLET PO SCH (12:33)
[2021-10-22] MEDS: OLANZapine 5 MG TABLET PO SCH (22:30)
[2021-10-23] MEDS: INSULIN SLIDING SCALE (NOVOLOG) 1 VIAL SQ SCH ×2 (06:28→17:13)
[2021-10-23] MEDS ORDERED: cefTRIAXone SODIUM 1 GM VIAL ONE (09:02)
[2021-10-23] MEDS ORDERED: DEXTROSE 5%-WATER - 50 ML IVPB ONE (09:03)
[2021-10-23] MEDS: CEFTRIAXONE 1 GM in DEXTROSE 5%-WATER - 50 ML IVPB SCH (09:32)
[2021-10-23] MEDS: QUEtiapine FUMARATE 25 MG TABLET PO SCH (09:33)
[2021-10-23] MEDS: HEPARIN NA (PORCINE) 5,000 UNITS/ML 1ML VIAL SQ SCH (09:33)
[2021-10-23] MEDS ORDERED: LORazepam 2 MG/ML SDV VIAL IM PRN (11:28)
[2021-10-23 15:42] VITALS: BP 141/74; PULSE 81; TEMP 98.9
== END 2021-10-23 19:54 | DRG 689 ==
LOC: JER 23:44 → JERBED 10-17 11:11 → J6S 10-17 15:31
PROVIDERS: ADMIT Internal Medicine; ATTEND Internal Medicine
DX: N39.0 Urinary tract infection, site not specified (principal); E43 Unspecified severe protein-calorie malnutrition; G93.41 Metabolic encephalopathy; R73.9 Hyperglycemia, unspecified; F03.90 Unspecified dementia, unspecified severity, without behavioral disturbance, psychotic disturbance, mood disturbance, and anxiety; E87.6 Hypokalemia
CPT/HCPCS: 36415; 70450-TC; 71045-TC-FY; 80048; 80053; 81003; 82607; 82746; 82962; 83036; 84443; 85025; 87086; 93005; 93010; 97116-GP; 97162-GP; 99285-25; C9803-CS; J1644; U0003; U0005

== ENCOUNTER 2021-12-22 14:29 | Inpatient (IN) | payer OTHER ==
[2021-12-22 18:04] LABS: BASO % 0.5 % (0-2.0); HEMATOCRIT 32.6 % (32.4-45.2); HEMOGLOBIN 10.6 GM/dL (10.7-15.3); LYMPH % 13.2 % (8-40); MCH 26.2 pg (25.7-33.7); MCHC 32.6 g/dl (32.0-36.0); MEAN CELL VOLUME 80.3 fl (80-96); MEAN PLT VOLUME 10.6 fl (7.5-11.1); NEUT % 77.3 % (42.8-82.8); PLATELET COUNT 112 10^3/uL (134-434); RBC 4.06 M/mm3 (3.60-5.2); RDW 14.4 % (11.6-15.6); WHITE BLOOD COUNT 10.9 K/mm3 (4.0-10.0)
[2021-12-22 18:23] LABS: INR 1.16 (0.83-1.09); PROTHROMBIN TIME (PATIENT) 13.4 SEC (9.7-13.0)
[2021-12-22 18:26] LABS: ACTIVATED PTT 26.3 SECONDS (25.2-36.5); ALBUMIN 3.4 g/dl (3.4-5.0); BLOOD UREA NITROGEN 26.9 mg/dL (7-18); CALCIUM 9.8 mg/dL (8.5-10.1)
[2021-12-22 18:29] LABS: CREATININE 0.7 mg/dL (0.55-1.3)
[2021-12-22 18:31] LABS: BILIRUBIN,TOTAL 1.3 mg/dL (0.2-1); TOT PROT 7.7 g/dl (6.4-8.2)
[2021-12-22 19:37] LABS: EPI CELLS 7 /uL (0-25.1); HYALINE CASTS 4 /uL (0-3.1); PH,URINE 5.5 (5.0-8.0); URINE APPEARANCE CLEAR; URINE BACTERIA 0 /uL (0-1359); URINE BILIRUBIN NEGATIVE (NEGATIVE); URINE COLOR DK YELLOW; URINE GLUCOSE (UA) NEGATIVE (NEGATIVE); URINE KETONE TRACE (NEGATIVE); URINE LEUK ESTERASE NEGATIVE (NEGATIVE); URINE NITRITE NEGATIVE (NEGATIVE); URINE PROTEIN TRACE (NEGATIVE); URINE RBC 24 /uL (0-23.9); URINE UROBILINOGEN 0.2 mg/dL (0.2-1.0); URINE WBC 11 /uL (0-25.8)
[2021-12-22] MEDS ORDERED: ACETAMINOPHEN 1000 MG/100 ML BAG IVPB ONE (19:52)
[2021-12-22] MEDS ORDERED: ACETAMINOPHEN INJECTION 100 ML IVPB ONE (19:54)
[2021-12-23] MEDS ORDERED: ACETAMINOPHEN 325 MG TABLET (FP) PO PRN (01:21)
[2021-12-23] MEDS: SODIUM CHLORIDE 1,000 ML IV SCH ×2 (02:30→21:22)
[2021-12-23] MEDS: INSULIN SLIDING SCALE (NOVOLOG) 1 VIAL SQ SCH ×4 (06:59→21:15)
[2021-12-23 07:21] LABS: CALCIUM 9.6 mg/dL (8.5-10.1)
[2021-12-23 07:22] LABS: ALBUMIN 3.1 g/dl (3.4-5.0); BLOOD UREA NITROGEN 26.3 mg/dL (7-18); MAGNESIUM 2.5 mg/dL (1.8-2.4)
[2021-12-23 07:25] LABS: CREATININE 0.6 mg/dL (0.55-1.3); PHOSPHOROUS 2.7 mg/dL (2.5-4.9)
[2021-12-23 07:26] LABS: BILIRUBIN,TOTAL 1.3 mg/dL (0.2-1); TOT PROT 7.1 g/dl (6.4-8.2)
[2021-12-23 09:07] LABS: HEMATOCRIT 32.8 % (32.4-45.2); HEMOGLOBIN 10.5 GM/dL (10.7-15.3); MCH 25.7 pg (25.7-33.7); MEAN CELL VOLUME 80.3 fl (80-96); MEAN PLT VOLUME 11.1 fl (7.5-11.1); PLATELET COUNT 115 10^3/uL (134-434); RBC 4.08 M/mm3 (3.60-5.2); RDW 14.3 % (11.6-15.6); WHITE BLOOD COUNT 10.2 K/mm3 (4.0-10.0)
[2021-12-23] MEDS ORDERED: ENOXAPARIN NA (PORCINE) 40 MG/0.4 ML DISP.SYRIN SQ SCH (10:00)
[2021-12-24] MEDS: SODIUM CHLORIDE 1,000 ML IV SCH (05:57)
[2021-12-24] MEDS: INSULIN SLIDING SCALE (NOVOLOG) 1 VIAL SQ SCH ×4 (06:06→21:34)
[2021-12-24] MEDS ORDERED: traMADol HCL 50 MG TABLET PO ONE ×2 (06:22→18:28)
[2021-12-24 10:45] LABS: HEMATOCRIT 27.6 % (32.4-45.2); HEMOGLOBIN 9.1 GM/dL (10.7-15.3); MCH 26.7 pg (25.7-33.7); MEAN CELL VOLUME 80.9 fl (80-96); MEAN PLT VOLUME 9.5 fl (7.5-11.1); PLATELET COUNT 146 10^3/uL (134-434); RBC 3.42 M/mm3 (3.60-5.2); RDW 14.2 % (11.6-15.6); WHITE BLOOD COUNT 8.2 K/mm3 (4.0-10.0)
[2021-12-24 11:11] LABS: CALCIUM 8.6 mg/dL (8.5-10.1)
[2021-12-24 11:12] LABS: ALBUMIN 2.6 g/dl (3.4-5.0); BLOOD UREA NITROGEN 22.6 mg/dL (7-18); MAGNESIUM 2.3 mg/dL (1.8-2.4)
[2021-12-24 11:15] LABS: CREATININE 0.5 mg/dL (0.55-1.3)
[2021-12-24 11:16] LABS: TOT PROT 6.2 g/dl (6.4-8.2)
[2021-12-24 11:17] LABS: BILIRUBIN,TOTAL 1.3 mg/dL (0.2-1)
[2021-12-24] MEDS ORDERED: BUPIVACAINE 0.75% IN DEXTROSE/PF 2ML AMPULE NR ONE (13:59)
[2021-12-24] MEDS ORDERED: PROPOFOL 60 ML ONE (13:59)
[2021-12-24] MEDS ORDERED: BUPIVACAINE HCL 50 ML ONE ×3 (14:08→18:20)
[2021-12-24] MEDS ORDERED: DEXAMETHASONE SOD PHOSPHATE 4 MG/1 ML VIAL ONE (14:09)
[2021-12-24] MEDS ORDERED: DEXMEDETOMIDINE HCL 200 MCG/2 ML IVPB ONE ×2 (14:46→18:28)
[2021-12-24] MEDS ORDERED: ACETAMINOPHEN INJECTION 100 ML IVPB ONE (15:34)
[2021-12-24] MEDS ORDERED: ceFAZolin SODIUM 1 GM VIAL IVPB ONE (16:30)
[2021-12-24] MEDS ORDERED: ACETAMINOPHEN 325 MG TABLET (FP) PO PRN (18:28)
[2021-12-24] MEDS: DOCUSATE SODIUM 100 MG CAPSULE (FP) PO SCH (22:40)
[2021-12-25] MEDS: CEFAZOLIN 1 GM in DEXTROSE 5%-WATER - 50 ML IVPB SCH ×3 (01:34→22:42)
[2021-12-25] MEDS: DOCUSATE SODIUM 100 MG CAPSULE (FP) PO SCH ×3 (06:38→22:43)
[2021-12-25] MEDS: INSULIN SLIDING SCALE (NOVOLOG) 1 VIAL SQ SCH ×4 (06:38→23:29)
[2021-12-25] MEDS: ENOXAPARIN NA (PORCINE) 40 MG/0.4 ML DISP.SYRIN SQ SCH (10:25)
[2021-12-25] MEDS: CHOLECALCIFEROL (VIT D3) 1,000 UNIT (25 MCG) TABLET PO SCH (10:26)
[2021-12-25 11:52] LABS: CALCIUM 8.2 mg/dL (8.5-10.1)
[2021-12-25 11:53] LABS: BLOOD UREA NITROGEN 14.4 mg/dL (7-18)
[2021-12-25 11:55] LABS: IRON SERUM 15 ug/dL (50-175)
[2021-12-25 11:56] LABS: CREATININE 0.6 mg/dL (0.55-1.3); TOTAL IRON BINDING CAPACITY 154 ug/dL (250-450)
[2021-12-26] MEDS: CEFAZOLIN 1 GM in DEXTROSE 5%-WATER - 50 ML IVPB SCH (04:25)
[2021-12-26] MEDS: DOCUSATE SODIUM 100 MG CAPSULE (FP) PO SCH ×3 (05:46→22:30)
[2021-12-26] MEDS: INSULIN SLIDING SCALE (NOVOLOG) 1 VIAL SQ SCH ×4 (06:35→22:31)
[2021-12-26 09:00] LABS: HEMATOCRIT 29.8 % (32.4-45.2); HEMOGLOBIN 9.8 GM/dL (10.7-15.3); MCH 27.1 pg (25.7-33.7); MEAN CELL VOLUME 82.2 fl (80-96); MEAN PLT VOLUME 9.6 fl (7.5-11.1); PLATELET COUNT 158 10^3/uL (134-434); RBC 3.62 M/mm3 (3.60-5.2); RDW 14.9 % (11.6-15.6); WHITE BLOOD COUNT 10.6 K/mm3 (4.0-10.0)
[2021-12-26] MEDS: ENOXAPARIN NA (PORCINE) 40 MG/0.4 ML DISP.SYRIN SQ SCH (09:11)
[2021-12-26] MEDS: CHOLECALCIFEROL (VIT D3) 1,000 UNIT (25 MCG) TABLET PO SCH (09:17)
[2021-12-26 09:35] LABS: CALCIUM 8.5 mg/dL (8.5-10.1)
[2021-12-26 09:36] LABS: ALBUMIN 2.2 g/dl (3.4-5.0)
[2021-12-26 09:39] LABS: CREATININE 0.5 mg/dL (0.55-1.3)
[2021-12-26 09:40] LABS: BILIRUBIN,TOTAL 1.9 mg/dL (0.2-1); TOT PROT 5.4 g/dl (6.4-8.2)
[2021-12-26] MEDS ORDERED: POTASSIUM CHLORIDE TABS 10 MEQ TABLET.ER (FP) PO ONE (13:30)
[2021-12-27] MEDS: DOCUSATE SODIUM 100 MG CAPSULE (FP) PO SCH ×3 (05:04→21:27)
[2021-12-27] MEDS: INSULIN SLIDING SCALE (NOVOLOG) 1 VIAL SQ SCH ×4 (06:33→23:07)
[2021-12-27] MEDS: ENOXAPARIN NA (PORCINE) 40 MG/0.4 ML DISP.SYRIN SQ SCH (09:32)
[2021-12-27] MEDS: CHOLECALCIFEROL (VIT D3) 1,000 UNIT (25 MCG) TABLET PO SCH (09:32)
[2021-12-27 10:00] LABS: BASO % 0.6 % (0-2.0); EOS % 2.7 % (0-4.5); HEMATOCRIT 29.2 % (32.4-45.2); HEMOGLOBIN 9.5 GM/dL (10.7-15.3); LYMPH % 13.1 % (8-40); MCH 26.8 pg (25.7-33.7); MCHC 32.7 g/dl (32.0-36.0); MEAN CELL VOLUME 82.2 fl (80-96); MEAN PLT VOLUME 9.2 fl (7.5-11.1); MONO % 7.7 % (3.8-10.2); NEUT % 75.9 % (42.8-82.8); PLATELET COUNT 185 10^3/uL (134-434); RBC 3.55 M/mm3 (3.60-5.2); RDW 15.4 % (11.6-15.6); WHITE BLOOD COUNT 7.8 K/mm3 (4.0-10.0)
[2021-12-27 10:12] LABS: CALCIUM 8.1 mg/dL (8.5-10.1); MAGNESIUM 1.9 mg/dL (1.8-2.4)
[2021-12-27 10:13] LABS: BLOOD UREA NITROGEN 14.4 mg/dL (7-18)
[2021-12-27 10:16] LABS: CREATININE 0.4 mg/dL (0.55-1.3)
[2021-12-27] MEDS: POTASSIUM CHLORIDE TABS 10 MEQ TABLET.ER (FP) PO SCH (14:54)
[2021-12-28] MEDS: INSULIN SLIDING SCALE (NOVOLOG) 1 VIAL SQ SCH ×4 (06:48→21:44)
[2021-12-28] MEDS: DOCUSATE SODIUM 100 MG CAPSULE (FP) PO SCH ×3 (06:48→21:37)
[2021-12-28] MEDS: ENOXAPARIN NA (PORCINE) 40 MG/0.4 ML DISP.SYRIN SQ SCH (10:11)
[2021-12-28] MEDS: POTASSIUM CHLORIDE TABS 10 MEQ TABLET.ER (FP) PO SCH (10:11)
[2021-12-28] MEDS: CHOLECALCIFEROL (VIT D3) 1,000 UNIT (25 MCG) TABLET PO SCH (10:11)
[2021-12-28 10:47] LABS: CALCIUM 8.8 mg/dL (8.5-10.1)
[2021-12-28 10:48] LABS: BLOOD UREA NITROGEN 10.7 mg/dL (7-18)
[2021-12-28 10:51] LABS: CREATININE 0.5 mg/dL (0.55-1.3)
[2021-12-28 15:08] VITALS: RESP 18
[2021-12-29] MEDS: DOCUSATE SODIUM 100 MG CAPSULE (FP) PO SCH ×2 (06:29→14:31)
[2021-12-29] MEDS: INSULIN SLIDING SCALE (NOVOLOG) 1 VIAL SQ SCH ×2 (06:30→12:36)
[2021-12-29 12:21] VITALS: BMI 19.3
[2021-12-29] MEDS: POTASSIUM CHLORIDE TABS 10 MEQ TABLET.ER (FP) PO SCH (12:38)
[2021-12-29] MEDS: CHOLECALCIFEROL (VIT D3) 1,000 UNIT (25 MCG) TABLET PO SCH (12:38)
[2021-12-29] MEDS: ENOXAPARIN NA (PORCINE) 40 MG/0.4 ML DISP.SYRIN SQ SCH (12:39)
[2021-12-29] MEDS ORDERED: AMINO ACIDS/PROTEIN HYDROLYS 30 ML LIQUID.PKT PO SCH (14:00)
[2021-12-29] MEDS ORDERED: MULTIVITAMINS THER W-MINERALS COMBO TABLET (FP) PO SCH (14:00)
[2021-12-29] MEDS ORDERED: ASCORBIC ACID 250 MG TABLET (FP) PO SCH (14:00)
[2021-12-29 14:04] VITALS: BP 101/62; PULSE 70; TEMP 98.8
== END 2021-12-29 16:25 | DRG 481 ==
LOC: JER 14:29 → JERBED 19:53 → J6S 23:59
PROVIDERS: ADMIT Internal Medicine; ATTEND Family Medicine
PROC: 0QS606Z Reposition Right Upper Femur with Intramedullary Internal Fixation Device, Open Approach (ICD-10-PCS; principal; 2021-12-24 13:00)
DX: S72.141A Displaced intertrochanteric fracture of right femur, initial encounter for closed fracture (principal); R64 Cachexia; Z68.1 Body mass index [BMI] 19.9 or less, adult; F03.90 Unspecified dementia, unspecified severity, without behavioral disturbance, psychotic disturbance, mood disturbance, and anxiety; S72.21XA Displaced subtrochanteric fracture of right femur, initial encounter for closed fracture; E11.9 Type 2 diabetes mellitus without complications; E87.6 Hypokalemia; W01.0XXA Fall on same level from slipping, tripping and stumbling without subsequent striking against object, initial encounter; Y93.89 Activity, other specified; Y92.129 Unspecified place in nursing home as the place of occurrence of the external cause; Y99.8 Other external cause status; R29.6 Repeated falls; Z79.4 Long term (current) use of insulin; D72.829 Elevated white blood cell count, unspecified; I10 Essential (primary) hypertension
CPT/HCPCS: 36415; 36430; 70450-TC; 72170-TC-FY; 73502-TC-RT-FY; 73552-TC-RT-FY; 76000-TC-FY; 80048; 80053; 81003; 82550; 82553; 82962; 83540; 83550; 83735; 84100; 84484; 85025; 85027; 85610; 85730; 86850; 86900; 86901; 86922; 87086; 93005; 93010; 94760; 97161-GP; 99285-25; C1713; C9803-CS; P9058; U0003; U0005